=== PATIENT | female | born 1995 | race African-American/Black ===

== ENCOUNTER → 2017-08-30 | Outpatient (CLI) | payer BC ==
--- NOTE | 2017-08-30 08:34 | RAD ---
Indication pelvic pain. Initially transabdominal scans were obtained. Initial transabdominal scans were supplemented with transvaginal scans. The hCG status is uncertain but will be assumed to be negative for the purposes of this report. The uterus measures 5.8 x 4.1 x 3.1 cm and appears normal. The endometrial thickness is unremarkable at approximately 7 mm. Both ovaries are seen and appear normal. Occasional follicular cysts are seen. There is a tiny amount of free fluid in the pelvis which is likely physiologic. IMPRESSION: Normal study
== END | disposition home or self-care (01) ==
LOC: US 06:54
PROVIDERS: ATTEND Obstetrics & Gynecology
DX: R10.2 Pelvic and perineal pain (principal)
CPT/HCPCS: 76830; 76856